=== PATIENT | female | born 1980 | race Caucasian/White ===

== ENCOUNTER 2024-04-26 09:46 | Emergency (ER) | payer OTHER, SELFPAY ==
--- NOTE | ~2024-04-26 | XR_ITS ---
EXAMINATION: XR foot LT min 3V DATE: 04/26/2024 10:06 INDICATION: Left foot inversion injury. TECHNIQUE: 4 views of left foot were obtained. COMPARISON: None. FINDINGS: Alignment is normal. No fracture. There is mild osteoarthritis of some of the midfoot joint s, metatarsophalangeal joints, and interphalangeal joints. There are enthesophytes at the posterior a nd plantar aspects of calcaneal tuberosity. IMPRESSION: 1. Mild polyarticular osteoarthritis. Reviewed, dictated and finalized at location B. T [employer]
[2024-04-26 09:55] VITALS: BP 160/83; PULSE 76; RESP 16; TEMP 36.7; O2SAT 100
--- NOTE | 2024-04-26 09:58 | ED_ITS ---
HPI - Extremity Injury (Lower) General Chief Complaint: Extremity Injury, Lower Stated Complaint: Fall Injury/Left Foot Time Seen by Provider: 04/26/24 09:58 Source: patient, RN notes reviewed and old records reviewed Mode of arrival: ambulatory Limitations: no limitations History of Present Illness HPI Narrative: 44 year old female who presents to [facility] with complaints of slipping on the ice by the grass and sidewalk at home this morning when going to vehicle to go to work. Patient reports that she had inversion injury of her foot and now has swelling and pain to her left foot. Patient reports that she tried to go to work but pain and swelling of her foot got so bad she had to leave and was told she needed an x-ray to see if fractured. Patient reports that her pain is mainly to the dorsal aspect of her left foot but as she walks she has some pain on the plantar aspect also. MD complaint: foot injury (left) Onset (ago): hour(s) (this morning when leaving her home for work) Injury: Left: foot Type of Injury: inversion Place: street/outdoors Related Data Allergies Allergy/AdvReac Type Severity Reaction Status Date / Time No Known Allergies Allergy Verified 04/26/24 09:59 Review of Systems Review of Systems: CONSTITUTIONAL: Denies fever, chills, or sweats. EYES: Denies visual changes, redness, or discharge. ENT: Denies rhinorrhea, congestion, sore throat, or otalgia. CARDIOVASCULAR: Denies chest pain, palpitations, or edema. RESPIRATORY: Denies cough or dyspnea. GASTROINTESTINAL: Denies abdominal pain, nausea, vomiting, or diarrhea. GENITOURINARY: Denies dysuria or hematuria. SKIN: Denies rash or itching. MUSCULOSKELETAL: Denies back pain,positive for pain to left foot with swelling, or myalgia. NEUROLOGIC: Denies headache, numbness, or weakness. PSYCHIATRIC: Denies anxiety or depression. All systems reviewed & are unremarkable except as noted in HPI and below PMFSH Past Medical History Medical History (Updated 04/26/24 @ 12:49 by Elisabeth Siegel NP) Hypertension Social History Social History (Updated 04/26/24 @ 12:50 by Elisabeth Siegel NP) Smoking status: Unknown if ever smoked Alcohol intake: unknown Substance use: unknown Living arrangements: with family Additional occupation/education comments: [employer] Gender identity (if verbalized by the patient): Female Comments At time of signature, agree with nursing past medical, surgical, social and family history. There is no relevant family history pertinent to the presenting complaint Exam Narrative: GENERAL: Well-appearing, well-nourished, obese,and in no acute distress. HEAD: Normocephalic, atraumatic. EYES: PERRLA and EOMI. ENT: Nares clear, no rhinorrhea or epistaxis. Mucous membranes moist. NECK: Supple. no lymphadenopathy CHEST: Clear to auscultation. No respiratory distress.SAO2 100% on room air HEART: Regular rate and rhythm. No murmur heard. Normal peripheral pulses. ABDOMEN: Soft, nontender, nondistended, normal active bowel sounds. EXTREMITIES: Normal range of motion. No edema.Exception noted to left foot with pain and swelling to dorsal aspect of foot with some pain to plantar area with ambulation, pedal pulse is palpable. Patient has not applied ice or taken any OTC medication for her discomfort prior to arrival Patient denies any tingling or numbness to her left foot or toes. SKIN: Warm, dry, no rash. NEURO: No focal deficits. Alert and oriented x3. Course Course Emergency Course: Patient is aware of diagnosis, understands and agrees to treatment plan.? Anticipatory guidance given.? Patient agrees to follow-up as directed and is aware of reasons to seek care at the emergency department. Portions of this record may have been created with voice recognition software Level of Care: Express Care Visit Vital Signs Vital signs: Vital Signs Temperature 36.7 C 04/26/24 09:55 Pulse Rate 76 04/26/24 09:55 Respiratory Rate 16 04/26/24 09:55 Blood Pressure 160/83 H 04/26/24 09:55 Pulse Oximetry 100 04/26/24 09:55 Oxygen Delivery Room Air 04/26/24 09:55 Temperature 36.7 C 04/26/24 09:55 Pulse Rate 76 04/26/24 09:55 Respiratory Rate 16 04/26/24 09:55 Blood Pressure 160/83 H 04/26/24 09:55 Pulse Oximetry 100 04/26/24 09:55 Oxygen Delivery Room Air 04/26/24 09:55 Reviewed MDM - Extremity Injury (Lower) Differential Diagnosis Differential diagnosis: Likely ankle sprain and strain, fracture of toe and other (foot fracture, contusion left foot) Medical Records Attestation: I reviewed the patient's medical records. Imaging Data Attestation: I personally reviewed and interpreted this imaging study as follows: My impression: no fracture mild polyarticular osteoarthritis Radiologist's impression: [facility] [address] [place] [address] XRay Report Signed Patient: Dia Shelton : 1980 MR#: [id number] Age: 44 Acct:[id number] Loc: [facility] ADM Date: 04/26/24Attending Dr: Ordering Physician: Elisabeth Siegel APRN Date of Service: 04/26/24 Procedure(s): XR foot LT min 3V Accession Number(s): [id number] cc: Power Sanders MD; Elisabeth Siegel APRN~ EXAMINATION: XR foot LT min 3V DATE: 04/26/2024 10:06 INDICATION: Left foot inversion injury. TECHNIQUE: 4 views of left foot were obtained. COMPARISON: None. FINDINGS: Alignment is normal. No fracture. There is mild osteoarthritis of some of the midfoot joints, metatarsophalangeal joints, and interphalangeal joints. There are enthesophytes at the posterior and plantar aspects of calcaneal tuberosity. IMPRESSION: 1. Mild polyarticular osteoarthritis. Reviewed, dictated and finalized at location B. TACKER Please be advised this is a medical document. It is intended for [id number] communication. It is written in medical language and may contain unfamiliar abbreviations or verbiage. Medical documents are intended to carry relevant information, facts as evident, and the clinical opinion of the practitioner at the time of the encounter. This report may have been done utilizing a voice recognition system. Attempts have been made to correct errors. However, there may be uncorrected grammatical, spelling, and recognition errors present. The file time of this note does not necessarily represent the time of service. Dictated By: Paresh Ghosh MD 04/26/24 1006 Signed By: <Electronically signed by Paresh Ghosh MD in OV> Critical Care Time Critical Care Time Critical Care Time: No Discharge Plan Discharge Clinical Impression: Contusion of foot, left Qualifiers: Encounter type: initial encounter Qualified Code(s): S90.32XA - Contusion of left foot, initial encounter Patient Disposition: Home, Self-Care Condition: Stable Instructions: Antibiotic Form, Foot Contusion (ED) Additional Instructions: Elastic wrap or orthopedic splint as directed for comfort for the next 5-7 days Tylenol for lesser pain recommend Arthritis Strength Tylenol 1 tab every 8 hours routinely for the next 2-3 days Ibuprofen regularly for the next 2-3 days for the inflammation 600 mg 3 times daily with food for the next 2-3 days Follow-up with orthopedic surgeon be further problems or concerns Follow-up with PCP if further problems or concerns Ice to the area 20-30 minutes 4-6 times a day Elevate above heart If your symptoms persist, change or worsen significantly before you can contact your personal physician then please, without delay, go to the emergency department for further evaluation. Follow-up with PCP in 7-10 days or sooner if needed Follow up with PCP soon in regards to your blood pressure which is elevated above threshold for referral. Blood pressure above 120/80 may indicate pre- hypertension. 160/83 Patient Language: [place] Follow-up/Referrals: Power Sanders MD [Primary Care Provider] - Stand Alone Forms: Work/School Release IP Time of Disposition: 10:28 Quality [place] Coma Scale Eyes: Open Verbal: Oriented and Alert Motor: Follows Commands [place] Coma Total Score: 15
== END 2024-04-26 10:33 | disposition home or self-care (01) ==
PROVIDERS: Emergency Provider Registered Nurse; PCP Emergency Medicine
DX: S90.32XA Contusion of left foot, initial encounter (principal); W00.0XXA Fall on same level due to ice and snow, initial encounter; I10 Essential (primary) hypertension
CPT/HCPCS: 73630; 99203; G0463